=== PATIENT | female | born 1940 | race Caucasian/White ===

== ENCOUNTER 2021-03-15 17:26 | Emergency (ER) | payer MEDICARE ==
[~2021-03-15] VITALS: Ht 154.9 cm; Wt 56.4 kg
[2021-03-15 17:34] VITALS: TEMP 97.4
[2021-03-15 18:18] LABS: BASO % 0.5 % (0.0-2.0); EOS # 0.1 (0.0-0.7); EOS % 1.7 % (0-4.0); GRAN # 4.9 (1.4-6.5); GRAN % 81.3 % (42.2-75.2); HEMOGLOBIN 10.2 g/dl (12.5-16.0); LYMPH # 0.5 (1.2-3.4); MEAN CELL VOLUME 99 fl (80.0-100.0); MEAN CORPUSCULAR HEMOGLOBIN 30 pg (27.0-31.0); MEAN CORPUSCULAR HGB CONC 31 g/dl (33.0-37.0); MEAN PLATELET VOLUME 11.2 fl (7.4-10.4); MONO # 0.4 (0.1-0.6); MONO % 6.8 % (1.7-9.3); PLATELET COUNT 122 K/mm3 (130-400); RED BLOOD COUNT 3.35 M/mm3 (4.10-5.30); REDCELL DISTRIBUTION WIDTH-CV 15.1 % (11.5-14.5)
[2021-03-15 18:19] LABS: HEMATOCRIT 33.1 % (37.0-47.0)
[2021-03-15 18:50] LABS: ALANINE AMINOTRANSFERASE 13 U/L (4-34); ALBUMIN 3.6 gm/dL (3.5-5.0); ALKALINE PHOSPHATASE 54 U/L (50-136); ANION GAP 7 mmol/L (7-16); AST,SGOT 22 U/L (15-37); BILIRUBIN,TOTAL 0.4 mg/dL (0.0-1.0); BLOOD UREA NITROGEN 52 mg/dL (7-17); CALCIUM 8.7 mg/dL (8.4-10.2); CARBON DIOXIDE 16 mmol/L (22-30); CHLORIDE 118 mmol/L (98-107); CREATININE, serum 3.12 (0.52-1.25); GLUCOSE 113 mg/dL (74-106); POTASSIUM 3.9 mmol/L (3.4-5.0); SODIUM 141 mmol/L (137-145); TOTAL PROTEIN 6.3 gm/dL (6.4-8.2)
[2021-03-15 19:08] LABS: TROPONIN-I < 0.012 ng/mL (0.000-0.035)
[2021-03-15 20:00] VITALS: BP 119/71; PULSE 86
== END 2021-03-15 22:00 | disposition home or self-care (01) ==
LOC: COL.ER 17:26
PROVIDERS: Emergency Medicine; Nurse Practitioner Primary Care
DX: R55 Syncope and collapse (principal); I48.91 Unspecified atrial fibrillation; Z95.0 Presence of cardiac pacemaker; Z79.01 Long term (current) use of anticoagulants; Z87.891 Personal history of nicotine dependence

== ENCOUNTER → 2021-05-23 | Outpatient (CLI) | payer MEDICARE | LOC: ZCOL.LAB 18:54 | DX: Z20.822 Contact with and (suspected) exposure to COVID-19 (principal) ==

== ENCOUNTER → 2022-03-07 | Outpatient (CLI) | payer MEDICARE | LOC: COL.RAD 12:31 → COL.LAB 12:31 → COL.RAD 13:30 | DX: R91.8 Other nonspecific abnormal finding of lung field (principal); D50.9 Iron deficiency anemia, unspecified; J44.9 Chronic obstructive pulmonary disease, unspecified | CPT/HCPCS: Q9967 ==

== ENCOUNTER → 2022-05-20 | Outpatient (CLI) | payer MEDICARE ==
[~2022-05-20] MED LIST: LEVAQUIN 5500 MG/TA1 PO
[2022-05-20 13:23] LABS: HEMATOCRIT 30.9 % (37.0-47.0); HEMOGLOBIN 9.6 g/dl (12.5-16.0); MEAN CELL VOLUME 96 fl (80.0-100.0); MEAN CORPUSCULAR HEMOGLOBIN 30 pg (27-31); MEAN CORPUSCULAR HGB CONC 31 g/dl (33.0-37.0); MEAN PLATELET VOLUME 9.6 fl (7.4-10.4); PLATELET COUNT 149 K/mm3 (130-400); RED BLOOD COUNT 3.21 M/mm3 (4.10-5.30); REDCELL DISTRIBUTION WIDTH-CV 13.8 % (11.5-14.5)
[2022-05-20 13:34] LABS: CALCIUM 8.9 mg/dL (8.4-10.2); CREATININE, serum 3.78 mg/dL (0.57-1.11); POTASSIUM 3.6 mmol/L (3.5-4.5)
== END ==
LOC: COL.LAB 12:56
PROVIDERS: Internal Medicine
DX: C34.91 Malignant neoplasm of unspecified part of right bronchus or lung (principal)